=== PATIENT | female | born 1935 | race Caucasian/White ===

== ENCOUNTER 2016-05-06 17:25 | Emergency (ER) | payer BC, MEDICARE ==
[2016-05-06] MEDS ORDERED: DIPHENHYDRAMINE 50 MG/ML VIAL ONE (22:35)
[2016-05-06] MEDS ORDERED: METOCLOPRAMIDE 10 MG/2 ML VIAL ONE (22:35)
[2016-05-06] MEDS ORDERED: SODIUM CHLORIDE 0.9% 1,000 ML ONE (22:36)
[2016-05-06] MEDS ORDERED: SODIUM CHLORIDE 0.9% 100 ML IV ONE ×2 (23:08→23:57)
[2016-05-06] MEDS ORDERED: KETOROLAC 30 MG/ML VIAL ONE (23:08)
[2016-05-06] MEDS ORDERED: CEFTRIAXONE 1 GM VIAL ONE ×2 (23:08→23:57)
== END 2016-05-07 00:49 | disposition home or self-care (01) ==
LOC: ER 17:25
CPT/HCPCS: 36415 ×2; 70450 ×2; 80053 ×2; 81001 ×2; 85025 ×2; 87077 ×2; 87088 ×2; 87186 ×2; 93005 ×2; 96361 ×2; 96365 ×2; 96375 ×2; 99284; J0696; J1885